=== PATIENT | male | born 1975 | race Caucasian/White ===

== ENCOUNTER 2019-11-08 09:24 | Inpatient (IN) | payer OTHER ==
[~2019-11-08] VITALS: Ht 190.5 cm; Wt 128.4 kg
[2019-11-08 09:53] LABS: Basophils # (auto) 0.1 10 ^3/uL (0-0.2); Basophils % (auto) 0.4 % (0.0-2.0); Eosinophils # (auto) 0 10 ^3/uL (0-0.8); Hemoglobin 15.6 g/dL (13.5-17.5); Lymphocytes # (auto) 1.2 10 ^3/uL (0.4-5.4); Lymphocytes % (auto) 6.8 % (10.0-50.0); Mean Corpuscular Hemoglobin 32.5 pg (28.0-32.0); Mean Corpuscular Hgb Conc. 33.8 g/dL (32.0-36.0); Monocytes # (auto) 1.1 10 ^3/uL (0-1.3); Monocytes % (auto) 6.2 % (0.0-12.0); Neutrophils # (auto) 14.8 10 ^3/uL (1.6-8.6); Neutrophils % (auto) 86.6 % (37.0-80.0); Nucleated Red Blood Cells % 0.1 %; Platelet Count (auto) 301 10^3/uL (140-450); Red Blood Cells 4.79 10^6/uL (4.5-5.90); Red Cell Distribution Width 14.1 % (11.8-14.3); White Blood Cell 17.1 10^3/uL (4.4-10.8)
[2019-11-08 10:11] LABS: Albumin 3.5 g/dL (3.4-5.0); BUN/Creatinine Ratio 11.7; Calcium 8.9 mg/dL (8.5-10.1); Potassium 4.4 mmol/L (3.5-5.1)
[2019-11-08 10:15] LABS: Bilirubin, Total 1.1 mg/dL (0.2-1.0); Total Protein 7.5 g/dL (6.4-8.2)
[2019-11-08] MEDS ORDERED: LOSA-39 PO (10:34)
[2019-11-08] MEDS ORDERED: SODIUM CHLORIDE 0.9% 500 ML IVB ONE (10:36)
[2019-11-08] MEDS ORDERED: SODIUM CHLORIDE 0.9% 1,000 ML IV ONE (10:36)
[2019-11-08] MEDS ORDERED: HYDROmorphone HCL 2 MG/ML VL IV ONE ×2 (10:45→15:15)
[2019-11-08 10:57] LABS: Magnesium 1.7 mg/dL (1.6-2.6)
[2019-11-08] MEDS: PROMETHAZINE HCL 25 MG/ML 1ML IV PRN (11:08)
[2019-11-08] MEDS ORDERED: metroNIDAZOLE 500MG/100ML 100 ML IV ONE (11:45)
[2019-11-08] MEDS ORDERED: cefTRIAXone 1GM/50ML D5W 50 ML IV ONE (11:45)
[2019-11-08] MEDS ORDERED: MORPHINE SULF INJ 2 MG/ML SYRINGE 1ML IV PRN (12:00)
[2019-11-08] MEDS ORDERED: LABETALOL HCL 5 MG/ML ML 20ML VIAL IV PRN (12:00)
[2019-11-08] MEDS ORDERED: NITROGLYCERIN 0.4 MG SL TAB SL PRN (12:00)
[2019-11-08 12:34] LABS: INR 1.14 (0.9-1.15); Partial Thromboplastin Time 26.4 sec (23.64-32.05)
[2019-11-08 12:58] LABS: Urine Bacteria NONE SEEN /hpf (None Seen); Urine Blood Negative /uL (Negative); Urine Specific Gravity 1.005 (1.001-1.035); Urine WBC 1 /hpf (0 - 3)
[2019-11-08] MEDS ORDERED: metroNIDAZOLE 500MG/100ML 100 ML IV SCH ×2 (14:00→20:00)
[2019-11-08] MEDS ORDERED: SUCCINYLCHOLINE CHLORIDE 20 MG/ML 10ML VIAL IV ONE (14:03)
[2019-11-08] MEDS ORDERED: MIDAZOLAM HCL 1MG/1ML-2 ML VIAL ONE (14:05)
[2019-11-08] MEDS ORDERED: POVIDONE IODINE 10 % TOPICAL OINT 30GM TOP ONE (14:06)
[2019-11-08] MEDS ORDERED: LIDOCAINE 1% (LOCAL ANESTH.) PF 5ml SDV ONE (14:07)
[2019-11-08] MEDS ORDERED: PROPOFOL 10 MG/ML 20 ML IV ONE (14:07)
[2019-11-08] MEDS ORDERED: ROCURONIUM 10MG/ML 10ML VIAL IV ONE (14:08)
[2019-11-08] MEDS ORDERED: METOCLOPRAMIDE HCL 5MG/ml INJ 2ml VIAL ONE (14:09)
[2019-11-08] MEDS ORDERED: hydrALAZINE HCL 20 MG/ML VL IV PRN (14:30)
[2019-11-08] MEDS ORDERED: ONDANSETRON HCL 4 MG/2 ML VIAL IV PRN (14:30)
[2019-11-08] MEDS ORDERED: HYDROmorphone HCL 2 MG/ML VL IV PRN (14:30)
[2019-11-08] MEDS ORDERED: NALOXONE HCL 0.4 MG/ML VIAL IV PRN (14:30)
[2019-11-08] MEDS ORDERED: fentaNYL CITRATE 100 MCG/2 ML VL ONE (14:40)
[2019-11-08] MEDS ORDERED: NEOSTIGMINE 1 MG/ML INJ (10mg/10ML VIAL) ONE (15:00)
[2019-11-08] MEDS ORDERED: GLYCOPYRROLATE 0.2 MG/ML 1ML VIAL ONE (15:00)
[2019-11-08] MEDS ORDERED: MEPERIDINE HCL (25 MG/ML) 1ML VIAL ONE (15:08)
[2019-11-08] MEDS: HYDROmorphone HCL 2 MG/ML VL IV PRN ×5 (15:20→20:07)
--- NOTE | 2019-11-08 16:05 | NUR ---
Telemetry admit from OR MELVINA JENNINGS admitted to Telemetry unit after SBAR received. Patient oriented to CRIS DUQUE,RN primary RN, unit, room, bed, and unit policies regarding patient care and visiting hours. Patient now on continuous telemetry monitoring, tele box #2 and telemetry reading on arrival to unit is NSR 88 BPM. Patient placed on bedside oxygen @ 4L N/C and SCDs, weighed by bedscale and encouraged to call if they need something. Bed in lowest locked position, bed rails up x2, call light within reach. All questions and concerns addressed, patient verbalized understanding.
--- NOTE | 2019-11-08 16:15 | NUR ---
IS PATIENT EDUCATED ON [id number] SPIROMETER AND TO USE AT LEAST 10X/HOUR. PATIENT VERBALIZED UNDERSTANDING AND RETURNED DEMONSTRATION. WILL CONTINUE TO MONITOR
[2019-11-08 16:25] VITALS: BP 124/74
[2019-11-08 17:00] VITALS: BP 124/74
[2019-11-08] MEDS: POTASSIUM CHLORIDE 20 MEQ in D5W/LACTATED RINGERS 1,000 ML IV SCH (17:58)
[2019-11-08] MEDS: ceFAZolin 1GM/50ML 50 ML IV SCH (17:59)
[2019-11-08] MEDS ORDERED: D5W/SOD CHL 0.45%/KCL 20MEQ 1,000 ML IV SCH (18:00)
--- NOTE | 2019-11-08 18:10 | NUR ---
ARELY EMPTIED 30 ML SANGUINOUS FLUID
--- NOTE | 2019-11-08 20:56 | NUR ---
Opening Shift Note Assumed care of patient, awake and alert. No S/S of distress/SOB or pain. Instructed on POC and to call for assist PRN, will continue to monitor for changes Q1hr and PRN.
[2019-11-08 21:00] VITALS: BP 126/77
[2019-11-08] MEDS: metroNIDAZOLE 500MG/100ML 100 ML IV SCH (21:58)
[2019-11-08] MEDS: ACETAMINOPHEN 325 MG TAB PO PRN (22:00)
--- NOTE | 2019-11-08 22:55 | NUR ---
At 2130, temp was 101. Cooling measures applied, extra blanket removed. notified, ordered Tylenol 650mg po q 6 hrs prn fever and headache. notified with no new order. Patient encouraged to see I &S. Addendum: 11/09/19 at 0722 by DEEPIKA OLSON RN RN ARELY with 50ml serous-sang during the shift.
[2019-11-09] MEDS: ceFAZolin 1GM/50ML 50 ML IV SCH ×4 (00:26→17:39)
[2019-11-09] MEDS: ACETAMINOPHEN 325 MG TAB PO PRN ×2 (00:29→21:22)
[2019-11-09] MEDS: HYDROmorphone HCL 2 MG/ML VL IV PRN ×6 (03:13→21:23)
[2019-11-09] MEDS: POTASSIUM CHLORIDE 20 MEQ in D5W/LACTATED RINGERS 1,000 ML IV SCH ×3 (03:52→16:28)
[2019-11-09] MEDS: metroNIDAZOLE 500MG/100ML 100 ML IV SCH ×3 (05:17→21:31)
[2019-11-09 05:46] VITALS: BP 134/77
--- NOTE | 2019-11-09 07:00 | NUR ---
Opening Shift Note Assumed care of patient, awake, alert, and oriented. No S/S of distress/SOB. Bed in lowest locked position, bed rails up x2, call light within reach. Instructed on POC and to call for assist PRN. Will continue to monitor for changes Q1hr and PRN.
--- NOTE | 2019-11-09 07:22 | NUR ---
PAIN PATIENT C/O PAIN 03/15 TO ABDOMEN. PATIENT STATING "HE FEELS FULL OF PRESSURE." WILL MEDICATE PER MD ORDERS
[2019-11-09 07:28] LABS: Basophils # (auto) 0 10 ^3/uL (0-0.2); Basophils % (auto) 0.3 % (0.0-2.0); Eosinophils # (auto) 0 10 ^3/uL (0-0.8); Eosinophils % (auto) 0.1 % (0.0-7.0); Hematocrit 44.3 % (41.0-53.0); Hemoglobin 14.8 g/dL (13.5-17.5); Lymphocytes # (auto) 0.8 10 ^3/uL (0.4-5.4); Lymphocytes % (auto) 7.4 % (10.0-50.0); Mean Corpuscular Hemoglobin 32.3 pg (28.0-32.0); Mean Corpuscular Hgb Conc. 33.5 g/dL (32.0-36.0); Mean Corpuscular Volume 96.4 fL (80.0-100.0); Monocytes # (auto) 0.6 10 ^3/uL (0-1.3); Monocytes % (auto) 5.9 % (0.0-12.0); Neutrophils # (auto) 9.3 10 ^3/uL (1.6-8.6); Neutrophils % (auto) 86.3 % (37.0-80.0); Platelet Count (auto) 257 10^3/uL (140-450); Red Blood Cells 4.59 10^6/uL (4.5-5.90); Red Cell Distribution Width 14.1 % (11.8-14.3); White Blood Cell 10.8 10^3/uL (4.4-10.8)
[2019-11-09 07:58] LABS: Albumin 3.1 g/dL (3.4-5.0); Calcium 8.5 mg/dL (8.5-10.1); Potassium 3.9 mmol/L (3.5-5.1)
[2019-11-09 08:03] LABS: BUN/Creatinine Ratio 12.2; Total Protein 7.2 g/dL (6.4-8.2)
[2019-11-09 09:00] VITALS: BP 147/90
[2019-11-09] MEDS ORDERED: cefTRIAXone 1GM/50ML D5W 50 ML IV SCH (09:00)
[2019-11-09] MEDS ORDERED: FAMOTIDINE (10MG/ML) 2ML VL IV SCH (10:00)
--- NOTE | 2019-11-09 10:50 | NUR ---
PAIN PATIENT C/O PAIN 8/10 ACHY TO ABDOMEN. WILL MEDICATE PER MD ORDERS
--- NOTE | 2019-11-09 11:20 | NUR ---
MD ROUNDS DR Gagandeep LEONG AT BEDSIDE DISCUSSING POC WITH PATIENT. ALL QUESTIONS/CONCERNS ANSWERED. WILL CONTINUE TO MONITOR
--- NOTE | 2019-11-09 11:35 | NUR ---
AMBULATION PATIENT AMBULATED APPROXIMATELY 150 FEET. PATIENT TOLERATED WELL. PATIENT IN CHAIR, CALL LIGHT WITHIN REACH. WILL CONTINUE TO MONITOR
[2019-11-09 13:00] VITALS: BP 133/78
--- NOTE | 2019-11-09 13:10 | NUR ---
AMBULATION PATIENT AMBULATED APPROXIMATELY 150 FEET. PATIENT TOLERATED WELL. PATIENT RETURNED TO BED, CALL LIGHT WITHIN REACH. WILL CONTINUE TO MONITOR
--- NOTE | 2019-11-09 14:10 | NUR ---
PAIN PATIENT C/O PAIN 03/15 TO RLQ ABDOMEN. PATIENT STATING "HE FEELS LIKE HE'S BEING STABBED" WILL MEDICATE PER MD ORDERS
[2019-11-09 17:00] VITALS: BP 139/92
--- NOTE | 2019-11-09 17:20 | NUR ---
AMBULATION PATIENT AMBULATED APPROXIMATELY 200 FEET. PATIENT TOLERATED WELL. PATIENT RETURNED TO BED, CALL LIGHT WITHIN REACH. WILL CONTINUE TO MONITOR
--- NOTE | 2019-11-09 17:30 | NUR ---
PAIN PATIENT C/O PAIN 8/10 FULL FEELING TO ABDOMEN. WILL MEDICATE PER MD ORDERS
--- NOTE | 2019-11-09 17:40 | NUR ---
ARELY EMPTIED 35 ML SANGUINOUS FLUID
--- NOTE | 2019-11-09 18:40 | NUR ---
BED PATIENT RETURNED TO BED.
[2019-11-09] MEDS ORDERED: PANTOPRAZOLE 40 MG TAB PO ONE (19:45)
--- NOTE | 2019-11-09 20:07 | NUR ---
Patient c/o heart burn, said, the i/v pepcid given today is not effective. Phone call to Danya Abdi NP, ordered d/c i/v pepcid, give protonix 40mg tonight and 40mg daily.
[2019-11-09 22:00] VITALS: BP 128/89
[2019-11-10] MEDS: metroNIDAZOLE 500MG/100ML 100 ML IV SCH ×3 (04:49→21:40)
[2019-11-10] MEDS: HYDROmorphone HCL 2 MG/ML VL IV PRN ×6 (04:49→21:41)
[2019-11-10 05:00] VITALS: BP 148/82
--- NOTE | 2019-11-10 05:22 | NUR ---
ARELY EMPTIED 20 ML SANGUINOUS FLUID Addendum: 11/10/19 at 0652 by DEEPIKA OLSON RN RN ARELY EMPTIED 10 ML SANGUINOUS FLUID
[2019-11-10 05:53] LABS: Basophils # (auto) 0 10 ^3/uL (0-0.2); Basophils % (auto) 0.1 % (0.0-2.0); Eosinophils # (auto) 0 10 ^3/uL (0-0.8); Eosinophils % (auto) 0.2 % (0.0-7.0); Hematocrit 41.8 % (41.0-53.0); Hemoglobin 13.9 g/dL (13.5-17.5); Lymphocytes # (auto) 0.7 10 ^3/uL (0.4-5.4); Lymphocytes % (auto) 6.8 % (10.0-50.0); Mean Corpuscular Hgb Conc. 33.2 g/dL (32.0-36.0); Mean Corpuscular Volume 96.5 fL (80.0-100.0); Monocytes # (auto) 0.9 10 ^3/uL (0-1.3); Monocytes % (auto) 8.6 % (0.0-12.0); Neutrophils # (auto) 9.2 10 ^3/uL (1.6-8.6); Neutrophils % (auto) 84.3 % (37.0-80.0); Platelet Count (auto) 243 10^3/uL (140-450); Red Blood Cells 4.33 10^6/uL (4.5-5.90); Red Cell Distribution Width 13.9 % (11.8-14.3); White Blood Cell 10.9 10^3/uL (4.4-10.8)
[2019-11-10 06:37] LABS: BUN/Creatinine Ratio 11.2
[2019-11-10 06:41] LABS: Bilirubin, Total 0.7 mg/dL (0.2-1.0); Total Protein 6.8 g/dL (6.4-8.2)
[2019-11-10] MEDS: ceFAZolin 1GM/50ML 50 ML IV SCH ×4 (06:42→18:46)
[2019-11-10] MEDS: POTASSIUM CHLORIDE 20 MEQ in D5W/LACTATED RINGERS 1,000 ML IV SCH ×2 (06:42→18:50)
[2019-11-10 07:12] LABS: Albumin 2.7 g/dL (3.4-5.0); Calcium 8.6 mg/dL (8.5-10.1)
[2019-11-10 09:00] VITALS: BP 126/78
[2019-11-10] MEDS ORDERED: PANTOPRAZOLE 40 MG TAB PO SCH (10:00)
[2019-11-10] MEDS ORDERED: SODIUM CHLORIDE 0.9% IV SCH (10:45)
[2019-11-10] MEDS ORDERED: CEFAZOLIN IV SCH (10:45)
[2019-11-10] MEDS ORDERED: GENTAMICIN SULFATE IV SCH (10:45)
--- NOTE | 2019-11-10 11:00 | NUR ---
PT C/O OF NAUSEA AND HEARTBURN PT C/O NAUSEA AND HEARTBURN. PT FOUND TO BE TAKING OWN TUMS AT BEDSIDE. EDUCATED PATIENT ON HOSPITAL POLICY AND THAT PT'S ARE TO ONLY TAKE WHAT IS PRESCRIBED BY THE DOCTOR. PT STATING HE NEEDS OTHER MEDICATION THEN, THE CURRENT STUFF IS NOT WORKING. INFORMED PT THAT I WILL PAGE THE DOCTOR AND INFORM HIM OF THE SITUATION. WILL GIVE NAUSEA MEDICATION STILL. WILL CONTINUE TO MONITOR Q1H AND PRN.
[2019-11-10] MEDS ORDERED: PANTOPRAZOLE 40 MG/10 ML VIAL INJ IV ONE (11:15)
--- NOTE | 2019-11-10 11:15 | NUR ---
DR. LEONG AT BEDSIDE INFORMED DR. LEONG OF SITUATION OF HEARTBURN, NAUSEA, AND PT TAKING OWN MEDICATIONS. NEW ORDERS RECEIVED. WILL CARRY OUT. PT STILL DECLINING TO STOP TAKING OWN TUMS HE STATING HE NEEDS THEM WILL CONTINUE EDUCATION. DR. LEONG MADE AWARE AGAIN OF PT TAKING OWN MEDICATION. ATTEMPTING TO GIVE NAUSEA MEDICATION. IV LEAKING. WILL START NEW IV.
--- NOTE | 2019-11-10 11:25 | NUR ---
IV removal IV to L A/C DC'd with clean sterile technique, catheter fully intact. Pressure dressing applied to site. Patient tolerated well. IV insertion IV access obtained, via clean sterile technique by inserting [22] gauge catheter at [R A/C] after [1] attempt(s). IV secured properly. No trauma to site. Patient tolerated well. Will administer nausea medication and pain medication. Will continue to monitor q1h and PRN.
[2019-11-10 13:00] VITALS: BP 151/97
[2019-11-10] MEDS: CEFAZOLIN IR SCH ×2 (13:09→21:47)
[2019-11-10] MEDS: GENTAMICIN SULFATE IR SCH ×2 (13:09→21:47)
[2019-11-10] MEDS: SODIUM CHL 0.9% IR SCH ×2 (13:09→21:47)
--- NOTE | 2019-11-10 13:35 | NUR ---
ARELY DRAIN CARE ARELY DRAIN EMPTIED. 40 ML'S OF SEROSANGUINEOUS FLUID PRESENT. ARELY DRAIN IRRIGATED PER MD ORDERS. PT TOLERATED WELL. ARELY BULB REATTACHED. WILL CONTINUE TO MONITOR Q1H AND PRN.
[2019-11-10] MEDS: PROMETHAZINE HCL 25 MG/ML 1ML IV PRN ×2 (15:47→20:27)
--- NOTE | 2019-11-10 15:58 | NUR ---
Nutrition Assessment Notes Please refer to link for full assessment notes. Est energy needs: [id number] kcals (14/18 kcal/kgBW) Est protein needs: 79-99 gms/day (0.8-1.0 gm/kgAdjBW) Will continue to monitor and reassess prn. Addendum: 11/10/19 at [address] Amended: Links added.
[2019-11-10 17:00] VITALS: BP 126/97
[2019-11-10] MEDS: ACETAMINOPHEN 325 MG TAB PO PRN (17:22)
--- NOTE | 2019-11-10 18:00 | NUR ---
IV removal IV to right AC DC'd d/t leakage and pain at site. IV D/C'd with clean sterile technique, catheter fully intact. Pressure dressing applied to site. Patient tolerated well. IV insertion IV access obtained, via clean sterile technique by inserting [22] gauge catheter at [L hand] after [1] attempt(s). IV secured properly. No trauma to site. Patient tolerated well.
--- NOTE | 2019-11-10 18:30 | NUR ---
PAIN AND ARELY EMPTIED PT C/O OF ABD PAIN 02/12. WILL GIVE PAIN MEDICATION. ARELY DRAIN EMPTIED AGAIN WITH CLEAN TECHNIQUE. NOTED TO HAVE 50 ML'S SEROSANGUINEOUS FLUID PRESENT. PT TOLERATED WELL. WILL CONTINUE TO MONITOR.
--- NOTE | 2019-11-10 20:47 | NUR ---
NAUSEA/ARELY DRAIN PATIENT C/O NAUSEA REQUESTING NAUSEA MEDICATION. ADMINISTERED PHENERGAN 12.5 MG IV PRESCRIBED PATIENT TOLERATED WELL. PATIENT HAS ARELY DRAIN TO UPPER MID ABDOMEN DISCARDED 40ML SEROSANGUINOUS DRAINAGE.
[2019-11-10 22:00] VITALS: BP 133/92
[2019-11-11] MEDS: ceFAZolin 1GM/50ML 50 ML IV SCH ×4 (00:24→17:54)
[2019-11-11] MEDS: HYDROmorphone HCL 2 MG/ML VL IV PRN ×7 (00:46→22:05)
[2019-11-11] MEDS: POTASSIUM CHLORIDE 20 MEQ in D5W/LACTATED RINGERS 1,000 ML IV SCH ×2 (04:43→13:57)
[2019-11-11 05:17] VITALS: BP 143/92
[2019-11-11] MEDS: metroNIDAZOLE 500MG/100ML 100 ML IV SCH ×3 (06:13→21:55)
[2019-11-11] MEDS: CEFAZOLIN IR SCH (06:13)
[2019-11-11] MEDS: GENTAMICIN SULFATE IR SCH (06:13)
[2019-11-11] MEDS: SODIUM CHL 0.9% IR SCH (06:13)
--- NOTE | 2019-11-11 07:30 | NUR ---
OPENING NOTES ASSUMED CARE OF PT. ALERT AND ORIENTED. NO S/S OF SOB/DISTRESS NOTED. SAFETY PRECAUTIONS IN PLACE. BED SET TO LOWEST POSITION/LOCKED, BEDSIDE RAILS UP X2, CALL LIGHT WITHIN REACH. INSTRUCTED PATIENT TO CALL FOR ASSISTANCE. UPDATED ON POC. PT VERBALIZED UNDERSTANDING. WILL CONTINUE TO MONITOR Q1HR AND PRN.
[2019-11-11] MEDS: PANTOPRAZOLE 40 MG/10 ML VIAL INJ IV SCH (08:54)
[2019-11-11] MEDS: PROMETHAZINE HCL 25 MG/ML 1ML IV PRN (08:54)
[2019-11-11 09:00] VITALS: BP 147/77
[2019-11-11 13:00] VITALS: BP 153/79
[2019-11-11 16:49] VITALS: BP 159/83
[2019-11-11 21:00] VITALS: BP 151/94
--- NOTE | 2019-11-11 22:05 | NUR ---
PATIENT C/O 9/10 ABDOMINAL PAIN REQUESTING PAIN MEDICATION. ADMINSITERED DILAUDID 0.5MG IV PRESCRIBED PATIENT TOLERATED WELL. PATIENT AMBULATED TO RESTROOM WITH STEADY GAIT AND RETURNED BACK TO BED. WILL CONTINUE TO MONITOR PATIENT.
--- NOTE | 2019-11-11 22:12 | NUR ---
PATIENT C/O GAS PAIN PATIENT HAS FLATUS BUT NO BM REQUESTING MEDICATION FOR GAS. PATIENT ALSO C/O SCROTAL EDEMA. STATES THEY FEEL MORE FULL THAT USUAL. PAGED HOSPITALIST FOR ORDERS
[2019-11-12] VITALS (8 sets, daily range): BP systolic 137–152; BP diastolic 80–99
[2019-11-12] MEDS: ceFAZolin 1GM/50ML 50 ML IV SCH ×3 (00:01→11:33)
[2019-11-12] MEDS: POTASSIUM CHLORIDE 20 MEQ in D5W/LACTATED RINGERS 1,000 ML IV SCH ×2 (00:02→13:52)
[2019-11-12] MEDS: HYDROmorphone HCL 2 MG/ML VL IV PRN ×7 (01:09→21:03)
[2019-11-12] MEDS: metroNIDAZOLE 500MG/100ML 100 ML IV SCH ×3 (05:32→22:08)
[2019-11-12 05:47] LABS: Basophils # (auto) 0 10 ^3/uL (0-0.2); Basophils % (auto) 0.4 % (0.0-2.0); Eosinophils # (auto) 0.1 10 ^3/uL (0-0.8); Eosinophils % (auto) 1.1 % (0.0-7.0); Hematocrit 36.2 % (41.0-53.0); Hemoglobin 12.4 g/dL (13.5-17.5); Lymphocytes % (auto) 10.2 % (10.0-50.0); Mean Corpuscular Hemoglobin 32.5 pg (28.0-32.0); Mean Corpuscular Hgb Conc. 34.2 g/dL (32.0-36.0); Mean Corpuscular Volume 94.9 fL (80.0-100.0); Monocytes # (auto) 1.5 10 ^3/uL (0-1.3); Monocytes % (auto) 15.4 % (0.0-12.0); Neutrophils # (auto) 6.9 10 ^3/uL (1.6-8.6); Neutrophils % (auto) 72.9 % (37.0-80.0); Platelet Count (auto) 267 10^3/uL (140-450); Red Blood Cells 3.82 10^6/uL (4.5-5.90); White Blood Cell 9.5 10^3/uL (4.4-10.8)
[2019-11-12 06:03] LABS: Albumin 2.4 g/dL (3.4-5.0); Calcium 8.3 mg/dL (8.5-10.1); Potassium 3.7 mmol/L (3.5-5.1)
[2019-11-12 06:09] LABS: Bilirubin, Total 0.4 mg/dL (0.2-1.0); Total Protein 6.2 g/dL (6.4-8.2)
[2019-11-12] MEDS: PANTOPRAZOLE 40 MG/10 ML VIAL INJ IV SCH (07:03)
--- NOTE | 2019-11-12 11:25 | NUR ---
DR LEONG BEDSIDE WITH PATIENT DISCUSSING PLAN OF CARE. I INFORMED DR LEONG OF PATIENTS GAS PAINS, AND SCROTAL AND LOWER EXTREMITY SWELLING.
[2019-11-12] MEDS ORDERED: levoFLOXacin 750MG 150 ML IV ONE (16:30)
--- NOTE | 2019-11-12 19:00 | NUR ---
Opening Shift Note Assumed care of patient, awake and alert. No S/S of distress/SOB but complains of pain. Instructed on POC and to call for assist PRN, will continue to monitor for changes Q1hr and PRN. Patient in lowest possible position with bed rails up x2 and call light within reach.
--- NOTE | 2019-11-12 23:50 | NUR ---
IV insertion IV access obtained, via clean sterile technique by inserting a 22 gauge catheter to the right hand after 1 attempt. IV secured properly. No trauma to site. Patient tolerated well.
--- NOTE | 2019-11-12 23:55 | NUR ---
IV removal IV DC'd with clean sterile technique, catheter fully intact. Pressure dressing applied to site. Patient tolerated well.
[2019-11-13] MEDS: HYDROmorphone HCL 2 MG/ML VL IV PRN ×8 (00:08→22:24)
[2019-11-13 05:00] VITALS: BP 141/93
[2019-11-13] MEDS: POTASSIUM CHLORIDE 20 MEQ in D5W/LACTATED RINGERS 1,000 ML IV SCH ×2 (06:00→06:21)
[2019-11-13] MEDS: metroNIDAZOLE 500MG/100ML 100 ML IV SCH ×3 (06:04→22:13)
[2019-11-13 09:00] VITALS: BP 153/89
[2019-11-13] MEDS: PANTOPRAZOLE 40 MG/10 ML VIAL INJ IV SCH (10:41)
[2019-11-13] MEDS: levoFLOXacin 750MG 150 ML IV SCH (10:41)
--- NOTE | 2019-11-13 11:30 | NUR ---
DR LEONG SAW PATIENT AND DISCUSSED POC. MD REPORTS TO CALL DR HARO TO SEE IF PT CAN DC TOMORROW. PT VERBALIZED UNDERSTANDING, WILL CONTINUE TO MONITOR.
--- NOTE | 2019-11-13 12:40 | NUR ---
CALLED PBX AND PAGED DR HARO TO SEE IF PT CAN DC TOMORROW. AWAITING CALL BACK.
[2019-11-13 13:00] VITALS: BP 153/95
--- NOTE | 2019-11-13 13:30 | NUR ---
DR HARO CALLED BACK, HE REPORTS HE WILL SEE PATIENT TOMORROW, HE REPORTS HE WANTS PATIENT TO HAVE HOME HEALTH FOR ARELY DRAIN IRRIGATION 2X A DAY.
--- NOTE | 2019-11-13 14:13 | NUR ---
CALLED AND LEFT MESSAGE WITH DR LEONG, REPORTED PT BP 153/95. PT REPORTS HE TAKES [place]ARTAN 100 MG DAILY AT HOME. NOTIFIED MD AND REQUESTED BP MED.
[2019-11-13] MEDS ORDERED: LOSARTAN POTASSIUM 50 MG TAB PO ONE (14:45)
--- NOTE | 2019-11-13 15:23 | NUR ---
assessment Patient is a 44 year old male who is alert and oriented. Prior to admission patient lived home with family and functioned independently. Patient informed me he is able to care for his own ADLs. Per patient he will return home to his prior living arrangements post discharge and family will transport him home. Patient was at work and having bad abdominal pain and came to ER and was admitted for ruptured appendix. Patient has good family support. Patient has no post discharge needs identified at this time. I informed patient he has a right to speak to a high school social studies tutor regarding all care. I informed patient he has a right to participate in any and all discharge planning. Patient does not have a POA and advanced directive. I have offered patient information on POA and advanced directives. I informed the patient the advantages and benefits of having an Advanced Directive. Patient verbalized understanding and agreed to discharge plan. Addendum: 11/13/19 at 1525 by Meera MILES Amended: Links added.
[2019-11-13 17:54] VITALS: BP 146/90
--- NOTE | 2019-11-13 19:29 | NUR ---
Less than 3 mls clear yellow drainage noted in ARELY drain, for shift.
--- NOTE | 2019-11-13 20:30 | NUR ---
IV removal IV DC'd with clean sterile technique, catheter fully intact. Pressure dressing applied to site. Patient tolerated well.
--- NOTE | 2019-11-13 20:58 | NUR ---
IV insertion IV access obtained, via clean sterile technique by inserting 22 gauge catheter at left hand after 1 attempt. IV secured properly. No trauma to site. Patient tolerated well.
[2019-11-13 22:00] VITALS: BP 145/84
[2019-11-14] MEDS: HYDROmorphone HCL 2 MG/ML VL IV PRN ×4 (01:56→11:30)
[2019-11-14 05:00] VITALS: BP 152/85
[2019-11-14] MEDS: metroNIDAZOLE 500MG/100ML 100 ML IV SCH (06:13)
--- NOTE | 2019-11-14 07:26 | NUR ---
Less than 2ml of clear yellow drainage from ARELY drain throughout noc shift
[2019-11-14 09:00] VITALS: BP 135/84
[2019-11-14] MEDS: levoFLOXacin 750MG 150 ML IV SCH (09:29)
[2019-11-14] MEDS: PANTOPRAZOLE 40 MG/10 ML VIAL INJ IV SCH (09:30)
[2019-11-14] MEDS ORDERED: LOSARTAN POTASSIUM 50 MG TAB PO SCH (10:00)
[2019-11-14 11:41] VITALS: BP 135/84
--- NOTE | 2019-11-14 12:08 | NUR ---
DR LEONG SAW PATIENT AND DISCUSSED POC. MD REPORTS PATIENT IS DISCHARGED. NEW SCRIPT FOR [employer] AND [employer], WELL AN OFF WORK NOTE FOR 10 DAYS. UNABLE TO SCHEDULE FOLLOW UP APPOINMENT WITH PATRICIA PERERA REPORTS OFFICE IS NOT ANSWERING. NOTIFIED DR LEONG. DR LEONG REPORTS TO CALL DR HARO. CALLED PBX AND PAGED DR HARO, AWAITING CALL BACK.
--- NOTE | 2019-11-14 12:30 | NUR ---
PT EDUCATED ON ARELY DRAIN CARE. HOW TO DRAIN AND TO MONITOR HIS OUTPUT, COLOR AND AMOUNT EVERYDAY. PT INSTRUCTED TO WEAR ABDOMINAL BINDER WHILE AMBULATING AND FOR PAIN. PT NOTIFIED TO TAKE SPONGE BATHS, AVOIDING SHOWERING INCISION SITES. PT NOTIFIED TO COME TO E.R. IF DRAIN COMES OUT, AND TO MONITOR INCISIONS SITES FOR REDNESS AND SWELLING. PT VERBALIZED UNDERSTANDING. PT EDUCATED TO CALL DR SWANSON OFFICE AND SCHEDULE FOLLOW UP APPOINMENT FOR DRAIN REMOVAL. PATIENT REPORTS HIS MOTHER USED TO WORK FOR DR HARO AND SHOULD HAVE NO PROBLEM GETTING IN TO SEE DR HARO.
--- NOTE | 2019-11-14 13:01 | NUR ---
Discharge instructions given as ordered. Encourage to follow up with Dr Mckeon as instructed. All questions and concerns addressed. Patient verbalized understanding. Medication reconciliation form completed and copy given to patient. IV removed with catheter intact, pressure dressing applied. Telemetry unit returned to ICU. Patient taken to vehicle via wheelchair with all personal belongings, accompanied by staff. No distress noted at time of departure.
== END 2019-11-14 13:00 | disposition home or self-care (01) | DRG 853 ==
LOC: ER 09:24 → TELE 09:25 → TELE-EAST 16:37 → TELE-WESTW 11-10 22:28
PROVIDERS: ADMIT Nurse Practitioner Acute Care; ATTEND Family Medicine
PROC: 0DTJ4ZZ Resection of Appendix, Percutaneous Endoscopic Approach (ICD-10-PCS; principal; 2019-11-08 14:09)
DX: A41.9 Sepsis, unspecified organism (principal); K35.32 Acute appendicitis with perforation, localized peritonitis, and gangrene, without abscess; N17.0 Acute kidney failure with tubular necrosis; I10 Essential (primary) hypertension; E66.9 Obesity, unspecified; E86.0 Dehydration; Z79.899 Other long term (current) drug therapy; Z68.35 Body mass index [BMI] 35.0-35.9, adult
CPT/HCPCS: 36415; 71045; 74176; 76870; 80053; 81001; 83605; 83690; 83735; 85025; 85610; 85730; 86850; 86900; 86901; 87070; 87077; 87186; 88302; 93005; C9113; G0378; J0330; J0690; J0696; J1956; J2250; J2405; J2704; J3490